=== PATIENT | male | born 1930 ===

== ENCOUNTER → 2016-05-09 | Outpatient (REF) ==
[2016-05-09 05:14] LABS: BASO % 0.2 % (0.0-2.0); GRAN # 8.8 (1.4-6.5); GRAN % 80.6 % (42.2-75.2); HEMATOCRIT 41.6 % (42.0-52.0); HEMOGLOBIN 13.5 g/dl (13.5-18.0); LYMPH % 8.9 % (20.0-51.0); MEAN CELL VOLUME 97 fl (80.0-100.0); MEAN CORPUSCULAR HEMOGLOBIN 31 pg (27.0-31.0); MEAN CORPUSCULAR HGB CONC 33 g/dl (33.0-37.0); MEAN PLATELET VOLUME 10.3 fl (7.4-10.4); MONO # 1.1 (0.1-0.6); MONO % 9.9 % (1.7-9.3); PLATELET COUNT 132 K/mm3 (130-400); REDCELL DISTRIBUTION WIDTH-CV 14.2 % (11.5-14.5); WHITE BLOOD COUNT 10.9 K/mm3 (4.8-10.8)
== END ==
LOC: ZMSC 05:07
PROVIDERS: Urology
DX: Z01.89 Encounter for other specified special examinations (principal)